=== PATIENT | female | born 1990 ===

== ENCOUNTER 2016-10-15 18:44 | Emergency (ER) | payer MEDICAID, SELFPAY ==
[2016-10-15 20:09] LABS: BASO % 0.3 % (0.0-2.0); EOS # 0.2 K/uL (0.0-0.7); EOS % 1.3 % (0.0-4.0); HEMATOCRIT 32.2 % (34.0-47.0); LYMPH # 2.5 K/uL (1.0-4.3); LYMPH % 20.1 % (20.0-40.0); MEAN CELL VOLUME 63.3 fl (81.0-99.0); MEAN CORPUSCULAR HEMOGLOBIN 19.4 pg (27.0-31.0); MEAN CORPUSCULAR HGB CONC 30.7 g/dL (33.0-37.0); MEAN PLATELET VOLUME 8.9 fl (7.2-11.7); MONO # 0.9 K/uL (0.0-0.8); MONO % 7.1 % (0.0-10.0); NEUT % 71.2 % (50.0-75.0); RED CELL DISTRIBUTION WIDTH 30.7 % (11.5-14.5); WHITE BLOOD COUNT 12.6 K/uL (4.8-10.8)
[2016-10-15 20:21] LABS: RBC URINE 5 /hpf (0-3); URINE BACTERIA RARE (<OCC); URINE BILIRUBIN NEGATIVE (NEGATIVE); URINE BLOOD MODERATE (NEGATIVE); URINE COLOR YELLOW (YELLOW); URINE GLUCOSE (UA) NEG (Normal); URINE KETONE NEGATIVE (NEGATIVE); URINE LEUKOCYTE ESTERASE SMALL Leu/uL (Negative); URINE PROTEIN 100 mg/dL (NEGATIVE); URINE UROBILINOGEN 0.2-1.0 mg/dL (0.2-1.0); WBC URINE 6 /hpf (0-5)
[2016-10-15 20:38] LABS: ALKALINE PHOSPHATASE 174 U/L (38-126); ALT/SGPT 18 U/L (9-52); AST/SGOT 21 U/L (14-36); BILIRUBIN,TOTAL 0.4 mg/dl (0.2-1.3); BLOOD UREA NITROGEN 7 mg/dl (7-17); CALCIUM 8.7 mg/dL (8.4-10.2); CARBON DIOXIDE 19 mmol/L (22-30); CHLORIDE 107 mmol/L (98-107); GFR AFRICAN-AMERICAN > 60; GLUCOSE,RANDOM 84 mg/dL (65-105); POTASSIUM 3.9 MMOL/L (3.6-5.0); SODIUM 137 mmol/l (132-148); TOTAL PROTEIN 7.4 G/DL (6.3-8.2)
--- NOTE | 2016-10-15 22:42 | OBHP ---
Datetime: 10/15/2016 19:13 IP Adm Impression: Term, intrauterine IP Chief Complaint Other: elevated BP evaluation IP Admit Plan: Observation/Evaluation; Discharge home Admit Comment, IP Provider: 26 y/o edc 10/21 by lmp _ 8wk us @ 39.1 weeks presents to [facility] for e valuation of elevated BP. Pt was seen in her clinic this afternoon and had several elevated BP readin gs, ranging from 133/90, 175/71, to 161/70 so her PMD sent her here for evalution. In the clinic she did not have any physical complaints and denied headaches, changes in vision, epigastric pain, numbne ss/tingling. Her only complaints right now are some mild SOB which she reports has been going on for the past few weeks (and has not worsened) and decrease in urinary frequency (she normally goes countl ess times, but today she has noticed a decrease, last urination was at the hospital and prior in [facility]). No other complaints. Denies headaches, changes in vision, epigastric pain, CP, N/V/D, urinary s ymptoms, numbness/tingling. Denies VB/LOF/CTX and reports +FM. POBhx: only pregancy,uneventful course thus far : reports being compliant in [facility] and started at 24 weeks when she moved here. Labs: GBS neg, HbSAg Neg, GC/CHL neg, HIV neg PMHx: none Meds: PNVs, Vit C, Iron, Zofran ALL: NKDA PSurgHx: none PHospHx: none Social: neg for ETOH, Tobacco, drug use Familial: non-pertinent A/P: 26 y/o @ 39.1 weeks IUP here for evaluation for possible pre-eclampsia -Vitals Q15 min -CBC w diff -CMP -UA -LDH -case discussed with Dr. Chico Bach MD PGY1 @ 19:20 OBH ADDENDUM: PT seen _ examined by me. Agree with above assessment and plan. Addendum 2: u/a: 1+ prot blood work nl p: 24hr urine. return tomorrw with urine collection preeclamptic precautions bedrest Pelvic Type - PN: Adequate Extremities - PN: Normal Abdomen - PN: Normal Back - PN: Normal Breast - PN: Normal Lungs - PN: Normal Heart - PN: Normal Thyroid - PN: Normal Neurologic - PN: Normal HEENT - PN: Normal General - PN: Normal Presentation-Admit: Vertex FHR - Baseline A Provider: 144 Contraction Comments Provider: none Comments, ACOG Physical Exam: lungs: CTA B/L, no WRR Neuro: CN II-XII grossly intact, DTRs equal b/l Vital Signs Provider: Reviewed; Within Normal Limits NICHD Variability Prov Fetus A: Moderate 6-25bpm NICHD Accel Fetus A IP Provider: [id number] FHR Category Provider Fetus A: Category I NICHD Decel Fetus A IP Provider: None Dilatation, Provider: 0 Effacement, Provider: 0 Station, Provider: -4 Genitourinary Exam: Normal DTRs - PN: Normal
== END 2016-10-15 21:22 | disposition home or self-care (01) ==
LOC: H.EROB2 18:44
DX: O47.1 False labor at or after 37 completed weeks of gestation (principal); Z3A.39 39 weeks gestation of pregnancy

== ENCOUNTER 2016-10-16 21:53 | Emergency (ER) | payer MEDICAID, SELFPAY ==
[2016-10-16 22:09] VITALS: BMI 28.1
[2016-10-17 07:43] LABS: CREATININE, RANDOM URINE 63.9 mg/dL
--- NOTE | 2016-10-17 17:34 | CP.PCM.PN ---
Subjective - Date & Time of Evaluation Date of Evaluation: 10/17/16 Time of Evaluation: 17:30 - Subjective Subjective: 2193mg/24h urine proetin noted...called pt and left msg to come into L&D Objective - Labs Labs: 10/16/16 07:00
== END 2016-10-16 23:00 | disposition home or self-care (01) ==
LOC: H.EROB2 21:53
DX: O13.3 Gestational [pregnancy-induced] hypertension without significant proteinuria, third trimester (principal); Z3A.39 39 weeks gestation of pregnancy

== ENCOUNTER 2016-10-17 21:05 | Inpatient (IN) | payer MEDICAID, SELFPAY ==
[2016-10-16 22:09] VITALS: BMI 28.1
--- NOTE | 2016-10-17 21:11 | OBDCSUM ---
Datetime: 10/16/2016 22:52 Discharge Instructions, Provider: Routine instructions given Follow up in weeks, Provider: 1-2d Contraception discussed, Prov: Yes Discharge Comment, Provider: Pre-eclampsia warning given 24h urine collection done; lab will do test in AM Discharge Diagnosis Prov Other: No evidence of pre-eclampsia
--- NOTE | 2016-10-17 21:11 | OBHP ---
Datetime: 10/16/2016 22:31 IP Adm Impression: Term, intrauterine IP Admit Plan: Observation/Evaluation Admit Comment, IP Provider: 26 y/o edc 10/21 by lmp _ 8wk us @ 39.2 weeks presents to [facility] for e valuation of elevated BP/24 hour urine. Pt was seen in her clinic yesterday afternoon and had several elevated BP readings, ranging from 133/90, 175/71, to 161/70 so her PMD/HHC sent her here for evalut ion. Labs yesterday overall (CBC/CMP/LDH) were WNL, however UA protein was 100mg/dL. Denies VB/LOF/C TX and reports +FM. POBhx: only pregancy,uneventful course thus far : reports being compliant in [facility] and started at 24 weeks when she moved here. Labs: GBS neg, HbSAg Neg, GC/CHL neg, HIV neg PMHx: none Meds: PNVs, Vit C, Iron, Zofran ALL: NKDA PSurgHx: none PHospHx: none Social: neg for ETOH, Tobacco, drug use Familial: non-pertinent A/P: 26 y/o @ 39.2 weeks IUP. -reactive NST -24 hour urine collected, 24 cr/cl, 24 hour urine creatinine collected -Blood pressures within normal limits -Will follow up results at [facility] 1-2d -case discussed with Dr.Ahn Franklyn Bach MD PGY1 @ 22:30 OB Hospitalist yoel...I saw and examined this pt with PGY1; no symptoms...will send urine protei n (lab states that it will be done in the morning. MAHNDO Pelvic Type - PN: Not Done Extremities - PN: Normal Abdomen - PN: Normal Back - PN: Normal Breast - PN: Normal Lungs - PN: Normal Heart - PN: Normal Thyroid - PN: Normal Neurologic - PN: Normal HEENT - PN: Normal General - PN: Normal Presentation-Admit: Vertex Membranes, Provider: Intact Comments, ACOG Physical Exam: ROS: General: no weakness; no fatigue HEENT: no AGUIAR; no visual dist CV: no palpitations; no no CP GI: noN/V no diarhea No epigastric pain; non radiating : no F/U/D MS: No joint pain Pool Provider: Negative IP Hx Assessment: The History/chart has been Reviewed EGA AdmitDate IP: 39.2 Vital Signs Provider: Reviewed; Within Normal Limits IP Chief Complaint: Other FHR Category Provider Fetus A: Category I Genitourinary Exam: Not Done DTRs - PN: Normal
[2016-10-17] MEDS ORDERED: Lactated Ringer's 1,000 ML IV SCH (22:00)
[2016-10-17 23:02] LABS: BASO # 0.1 K/uL (0.0-0.2); BASO % 0.5 % (0.0-2.0); EOS # 0.2 K/uL (0.0-0.7); EOS % 1.6 % (0.0-4.0); HEMATOCRIT 31.8 % (34.0-47.0); LYMPH # 2.6 K/uL (1.0-4.3); LYMPH % 21.9 % (20.0-40.0); MEAN CELL VOLUME 63.5 fl (81.0-99.0); MEAN CORPUSCULAR HEMOGLOBIN 19.5 pg (27.0-31.0); MEAN CORPUSCULAR HGB CONC 30.6 g/dL (33.0-37.0); MONO # 0.9 K/uL (0.0-0.8); NEUT # 7.9 K/uL (1.8-7.0); RED CELL DISTRIBUTION WIDTH 30.3 % (11.5-14.5); WHITE BLOOD COUNT 11.7 K/uL (4.8-10.8)
[2016-10-18 00:14] VITALS: BP 117/61; PULSE 89; RESP 19; TEMP 97.6; O2SAT 100
[2016-10-18] MEDS ORDERED: Nalbuphine 20 mg/ml Inj (1 ml) IVP PRN (03:26)
[2016-10-18] MEDS: Lactated Ringer's 1,000 ML IV SCH ×2 (06:13→21:30)
--- NOTE | 2016-10-18 06:39 | OBHP ---
Datetime: 10/17/2016 21:59 IP Adm Impression: Term, intrauterine IP Admit Plan: Admit to unit; Initiate labor induction protocol Admit Comment, IP Provider: 26 y/o edc 10/21 by lmp _ 8wk us @ 39.3 weeks presents for induction of labor. Pt was seen yesterday and 24Hr urine resulted in >2900gm of proteinuria. Reports she has b een normotensive throughout the day today (<140/90 as per pt) and reports feeling fine overall. No ot her complaints. Denies headaches, changes in vision, epigastric pain, CP, N/V/D, urinary symptoms, nu mbness/tingling. Denies VB/LOF/CTX and reports +FM. POBhx: only pregancy,uneventful course thus far : reports being compliant in [facility] and started at 24 weeks when she moved here. Labs: GBS neg, HbSAg Neg, GC/CHL neg, HIV neg. 24Hr Urine: 2913gm PMHx: none Meds: PNVs, Vit C, Iron, Zofran ALL: NKDA PSurgHx: none PHospHx: none Social: neg for ETOH, Tobacco, drug use Familial: non-pertinent A/P: 26 y/o @ 39.3 weeks IUP here for induction of labor secondary to possible pre-eclampsia -admit to unit -CBC, Type and Screen -Cervidil -Monitor BPs, monitoring -Anesthiology consult for epidural -case discussed with Dr. Giorgio Bach MD PGY1 @ 22:00 The patient was seen with the resident I agree with note patient noted to have elevated blood pres sures 2 g of proteinuria at 39 weeks gestation. Patient noted to have unfavorable cervix Cervidil shi mary for cervical ripening, patient noted to have adequate pelvis, vertex presentation, estimated feta l weight 7-1/2 pounds Pelvic Type - PN: Adequate Extremities - PN: Normal Abdomen - PN: Normal Back - PN: Normal Breast - PN: Normal Lungs - PN: Normal Heart - PN: Normal Thyroid - PN: Normal Neurologic - PN: Normal HEENT - PN: Normal General - PN: Normal Presentation-Admit: Vertex FHR - Baseline A Provider: 145 Comments, ACOG Physical Exam: Neuro: CN II-XII grossly intact, DTRs equal b/l Gestation - Est Wks by US: 39.3 EGA AdmitDate IP: 39.3 Vital Signs Provider: Reviewed IP Indication for Induction: Gest. HTN/PreEclampsia/Eclampsia IP Chief Complaint: Scheduled induction of labor NICHD Variability Prov Fetus A: Moderate 6-25bpm NICHD Accel Fetus A IP Provider: 15X15 FHR Category Provider Fetus A: Category I NICHD Decel Fetus A IP Provider: None Genitourinary Exam: Normal DTRs - PN: Normal
--- NOTE | 2016-10-18 06:42 | OBADHP ---
Datetime: 10/17/2016 21:59 Admit Comment, IP Provider: 26 y/o edc 10/21 by lmp _ 8wk us @ 39.3 weeks presents for induction of labor. Pt was seen yesterday and 24Hr urine resulted in >2900gm of proteinuria. Reports she has b een normotensive throughout the day today (<140/90 as per pt) and reports feeling fine overall. No ot her complaints. Denies headaches, changes in vision, epigastric pain, CP, N/V/D, urinary symptoms, nu mbness/tingling. Denies VB/LOF/CTX and reports +FM. POBhx: only pregancy,uneventful course thus far : reports being compliant in [facility] and started at 24 weeks when she moved here. Labs: GBS neg, HbSAg Neg, GC/CHL neg, HIV neg. 24Hr Urine: 2913gm PMHx: none Meds: PNVs, Vit C, Iron, Zofran ALL: NKDA PSurgHx: none PHospHx: none Social: neg for ETOH, Tobacco, drug use Familial: non-pertinent A/P: 26 y/o @ 39.3 weeks IUP here for induction of labor secondary to possible pre-eclampsia -admit to unit -CBC, Type and Screen -Cervidil -Monitor BPs, monitoring -Anesthiology consult for epidural -case discussed with Dr. Giorgio Bach MD PGY1 @ 22:00 The patient was seen with the resident I agree with note patient noted to have elevated blood pres sures 2 g of proteinuria at 39 weeks gestation. Patient noted to have unfavorable cervix Cervidil shi mary for cervical ripening, patient noted to have adequate pelvis, vertex presentation, estimated feta l weight 7-1/2 pounds Pelvic Type - PN: Adequate Extremities - PN: Normal Abdomen - PN: Normal Back - PN: Normal Breast - PN: Normal Lungs - PN: Normal Heart - PN: Normal Thyroid - PN: Normal Neurologic - PN: Normal HEENT - PN: Normal General - PN: Normal Presentation-Admit: Vertex FHR - Baseline A Provider: 145 Comments, ACOG Physical Exam: Neuro: CN II-XII grossly intact, DTRs equal b/l Gestation - Est Wks by US: 39.3 Vital Signs Provider: Reviewed IP Chief Complaint: Scheduled induction of labor NICHD Variability Prov Fetus A: Moderate 6-25bpm NICHD Accel Fetus A IP Provider: 15X15 FHR Category Provider Fetus A: Category I NICHD Decel Fetus A IP Provider: None Genitourinary Exam: Normal DTRs - PN: Normal EGA AdmitDate IP: 39.3 IP Adm Impression: Term, intrauterine IP Admit Plan: Admit to unit; Initiate labor induction protocol Datetime: 10/16/2016 22:31 Membranes, Provider: Intact Pool Provider: Negative IP Hx Assessment: The History/chart has been Reviewed Datetime: 10/15/2016 19:13 IP Chief Complaint Other: elevated BP evaluation Contraction Comments Provider: none Dilatation, Provider: 0 Effacement, Provider: 0 Station, Provider: -4
[2016-10-18] MEDS ORDERED: Oxytocin 30 units/LR 500ML 30 U/500 ML BAG IV ONE (17:45)
[2016-10-18] MEDS ORDERED: Fentanyl/Bupivacaine HCl 250 ML EPI ONE (20:47)
[2016-10-19] MEDS ORDERED: Bupivacaine HCl 0.5% PF (30 ml) Inj ONE (00:42)
[2016-10-19] MEDS: Lactated Ringer's 1,000 ML IV SCH ×2 (04:00→06:36)
--- NOTE | 2016-10-19 08:43 | OBPN ---
Datetime: 10/19/2016 08:40 IP Progress Impression: Normal progression of labor; Reassuring heart rate IP Informed Consent Obtain: Vaginal Delivery IP Procedures: Artificial ROM IP Progress Plan: Continue present management Membranes, Provider: Ruptured Amniotic Fluid Color, Provider: Clear Contraction Comments Provider: q5-6min FHR - Baseline A Provider: 150s IP Progress Note Comment: AROM clear fluid. Labor progressing well. Both MWB/FWB reassuring at thi s time. Anticipate . Vital Signs Provider: Reviewed; Within Normal Limits FHR Category Provider Fetus A: Category I NICHD Variability Prov Fetus A: Moderate 6-25bpm Dilatation, Provider: 10 Effacement, Provider: 100 Station, Provider: -1 NICHD Decel Fetus A IP Provider: None Datetime: 10/18/2016 12:44 NICHD Accel Fetus A IP Provider: [id number] Datetime: 10/18/2016 10:05 Presentation-Admit: Vertex Datetime: 10/17/2016 21:59 Gestation - Est Wks by US: 39.3 Datetime: 10/16/2016 22:31 Pool Provider: Negative
--- NOTE | 2016-10-19 10:49 | OBPN ---
Datetime: 10/19/2016 10:46 IP Progress Impression: Reassuring heart rate IP Procedures: Sterile Vag Exam IP Progress Plan: Continue present management; Augmentation Contraction Comments Provider: q5-6min FHR - Baseline A Provider: 150d IP Progress Note Comment: T=100.7. Start Ampicillin and Gentamycin. Continue current management. Vital Signs Provider: Reviewed; Within Normal Limits NICHD Variability Prov Fetus A: Moderate 6-25bpm Dilatation, Provider: 10 Effacement, Provider: 100 Station, Provider: 1 NICHD Decel Fetus A IP Provider: Early
[2016-10-19] MEDS: Gentamicin 80mg/50ml NS 80 MG/50 ML BAG IVPB SCH ×2 (10:55→19:16)
[2016-10-19] MEDS ORDERED: Oxycodone/Acetaminophen 5/325 mg Tab PO PRN ×2 (11:26)
--- NOTE | 2016-10-19 11:34 | OBDS ---
DELIVERY PERSONNEL Anesthesiologist: Tyesha Velázquez MD MATERNAL INFORMATION Delivery Anesthesia: Epidural Provider Comments: Normal spontaneous vaginal delivery. Patient delivered viable infant male with Apgars of 9 and 9 at 1 and 5 minutes respectively via LO A position. Placenta delivered spontaneously. No lacerations, perineum intact. Uterus firm and approp riately hemostatic delivery. Patient tolerated delivery well. No complications. Estimated blood loss 200 mL LABOR SUMMARY EDC: 10/21/2016 00:00 No. Babies in Womb: 1 Attempted: No Labor Anesthesia: Epidural LABOR INFORMATION Onset of Labor: 10/19/2016 01:29 Complete Dilatation: 10/19/2016 06:46 Cervical Ripening Agents: Cytotec @ 25mcg Oxytocin: Induction Group B Beta Strep: Negative Steroids Given: None Reason Steroids Not Administered: Not Applicable STAGES OF LABOR Stage 1 hrs: 5 Stage 1 min: 17 VAGINAL DELIVERY Episiotomy: None Laceration Extension: N/A Laceration Type: None Laceration Repair: Not Applicable BABY A INFORMATION Born in Route : No : N/A PRESENTATION/POSITION BABY A Presentation: Cephalic IDENTIFICATION/MEDS BABY A ID Band Number: [id number]
[2016-10-19] MEDS: Ampicillin 2 GM in Sodium Chloride 0.9% 100 ML IVPB SCH ×3 (12:11→23:49)
[2016-10-19] MEDS: Benzocaine/Menthol SPRAY TOP PRN (12:14)
[2016-10-19] MEDS ORDERED: Oxytocin 30 units/LR 500ML 30 U/500 ML BAG IV ONE (12:24)
[2016-10-20] MEDS: Gentamicin 80mg/50ml NS 80 MG/50 ML BAG IVPB SCH ×2 (03:42→10:45)
[2016-10-20] MEDS: Ampicillin 2 GM in Sodium Chloride 0.9% 100 ML IVPB SCH ×2 (06:08→10:39)
[2016-10-20 08:04] LABS: HEMATOCRIT 29.7 % (34.0-47.0); MEAN CELL VOLUME 63.3 fl (81.0-99.0); MEAN CORPUSCULAR HEMOGLOBIN 19.5 pg (27.0-31.0); MEAN CORPUSCULAR HGB CONC 30.7 g/dL (33.0-37.0); RED CELL DISTRIBUTION WIDTH 29.9 % (11.5-14.5); WHITE BLOOD COUNT 20.6 K/uL (4.8-10.8)
[2016-10-20] MEDS: Multivitamin With Minerals Tab PO SCH (09:07)
--- NOTE | 2016-10-20 10:51 | OBPPN ---
Datetime: 10/20/2016 06:13 PP Pain Prov: Within normal limits PP Nausea Prov: Denies PP Flatus Prov: Yes PP BM Prov: Yes PP Breasts Prov: Normal PP Heart Prov: Normal PP Lungs Prov: Normal PP Abdomen/Uterus Prov: Normal PP Lochia Prov: Normal PP Vulva/Perineum Prov: Normal PP CVA Tenderness Prov: Normal PP Extremities Prov: Normal PP C/S Incision Prov: Not Applicable PP Progress Prov: Normal PP Comments Phys Exam Prov: abd: soft, NT/ND, +bs. Fundus firm at level of umbilicus ext: neg calf tenderness, homans neg b/l PP Impression Prov: Normal progression PP Plan Prov: Continue present management PP Progress Note Prov: S: pt seen and examined at bedside this am. No acute events overnight. BPs wi thin normal limits. Mild pain controlled with medications. OOB/Ambulating without difficulty. Breast and bottle feeding without difficulty. Tolerating PO intake with ease. Lochia is similar to menses. + BM. Denies fever/chills, diarrhea, N/V, CP/SOB, Lightheadedness, calf pain. A/P: 26 y/o GP1P0 s/p on 10/19, tolerating pain with meds, afebrile, doing well on PPD#1. -Continue current mangement -Ibuprofen 600mg PO PRN Q6H moderate pain -OOB/ambulation - encouraged -f/u [facility] -anticipate DC 10/21 Franklyn Bach MD PGY1 @ 6:17am Addendum by Dr. Macario: Patient evaluated independently and I agree with the above. The patient is stable, PPD #1, reg diet, encourage ambulation/. Continue all orders Vital Signs Provider PP: Reviewed; Within Normal Limits
[2016-10-20] MEDS ORDERED: Gentamicin 80mg/50ml NS 80 MG/50 ML BAG IVPB SCH (12:16)
[2016-10-20] MEDS: Benzocaine/Menthol SPRAY TOP PRN (15:13)
[2016-10-21] MEDS: Multivitamin With Minerals Tab PO SCH (09:28)
[2016-10-21] MEDS: Benzocaine/Menthol SPRAY TOP PRN (09:28)
--- NOTE | 2016-10-21 11:19 | OBPPN ---
Datetime: 10/21/2016 08:12 PP Pain Prov: Within normal limits PP Nausea Prov: Denies PP Flatus Prov: Yes PP BM Prov: Yes PP Breasts Prov: Normal PP Heart Prov: Normal PP Lungs Prov: Normal PP Abdomen/Uterus Prov: Normal PP Lochia Prov: Normal PP Vulva/Perineum Prov: Normal PP CVA Tenderness Prov: Normal PP Extremities Prov: Normal PP C/S Incision Prov: Not Applicable PP Comments Phys Exam Prov: Not acute distress Lungs CTA b/l RRR, S1S2, no calf tenderness, no murmurs Abd: Soft, Uterus below umb level, firm, BS+ Alert, oriented x3 PP Impression Prov: Normal progression PP Plan Prov: Continue present management PP Progress Note Prov: S: pt seen and examined at bedside this morning. C/O mild b/l hip pain contro lled with medications. OOB/Ambulating without difficulty. Breast and bottle feeding. Tolerating PO. L ochia like menses. +BM yesterday. Denies fever/chills, diarrhea, N/V, CP/SOB, Lightheadedness, calf p ain. A/P: 26 y/o s/p PPD2 normal progression -Continue current mangement -Ibuprofen 600mg PO PRN Q6H for pain -OOB/ambulation - encouraged -anticipate DC today Hima Ashraf PGY1 Addendum by Dr. Macario: Patient evaluated independently and I agree with the above. THe patient is stable for discharge, discharge instructions reviewed IP PP Procedures: None Vital Signs Provider PP: Reviewed; Within Normal Limits
--- NOTE | 2016-10-21 11:21 | OBDCSUM ---
Datetime: 10/21/2016 08:17 Discharged to, Provider: Home Follow up at, Provider: PMD Disch Instr Activity: Normal activity Disch Instr Diet: Regular Discharge Instructions, Provider: Routine instructions given Discharge Diagnosis, Provider: Term Delivered Discharge Time: 10/21/2016 10:50 Follow up in weeks, Provider: 6 weeks Disch Referrals: None Contraception discussed, Prov: Yes Disch Activity Restrictions: No lifting; No sexual activity; Nothing in vagina - [place], tampon s, douche Discharge Comment, Provider: S: pt seen and examined at bedside this morning. C/O mild b/l hip pain controlled with medications. OOB/Ambulating without difficulty. Breast and bottle feeding. Tolerating PO. Lochia like menses. +BM yesterday. Denies fever/chills, diarrhea, N/V, CP/SOB, Lightheadedness, calf pain. A/P: 26 y/o s/p PPD2 normal progression -DC home -Ibuprofen 600mg PO PRN Q6H for pain - encouraged -F/U with PMD in 6 weeks and with [facility] or [facility] for baby within 3 days -Return to ED if severe pain, heavy bleeding, fever or any other concerns Hima Ashraf PGY1 Contraception after Delivery: Undecided
== END 2016-10-21 10:50 | disposition home or self-care (01) | DRG 373 ==
LOC: H.EROB2 21:05 → H.L&D 21:55 → H.OB/GYN 10-19 14:00
PROVIDERS: ADMIT Obstetrics & Gynecology Gynecology; ATTEND Obstetrics & Gynecology Gynecology
PROC: 4A1HXCZ Monitoring of Products of Conception, Cardiac Rate, External Approach (ICD-10-PCS; 2016-10-17)
PROC: 10E0XZZ Delivery of Products of Conception, External Approach (ICD-10-PCS; principal; 2016-10-19)
PROC: 10907ZC Drainage of Amniotic Fluid, Therapeutic from Products of Conception, Via Natural or Artificial Opening (ICD-10-PCS; 2016-10-19)
DX: O12.13 Gestational proteinuria, third trimester (principal); Z37.0 Single live birth; Z3A.39 39 weeks gestation of pregnancy